=== PATIENT | male | born 1990 ===

== ENCOUNTER 2018-05-04 14:55 | Emergency (ER) | payer OTHER ==
[2018-05-04] MEDS ORDERED: NACL 0.9% 1000 ML 1,000 ML IV ONE ×2 (15:37→16:21)
[2018-05-04 16:05] LABS: Basophils # (Auto) 0.1 K/mm3 (0.0-0.1); Basophils % (Auto) 0.9 % (0.0-1.8); Eosinophils % (Auto) 0.4 % (0.0-4.3); Hemoglobin 13.5 gm/dl (11.8-15.2); Lymphocytes # (Auto) 3.7 K/mm3 (1.2-5.4); Lymphocytes % (Auto) 30.2 % (13.4-35.0); Mean Corpuscular HGB Conc 35 % (32-34); Mean Corpuscular Hemoglobin 31 pg (28-32); Mean Corpuscular Volume 90 fl (84-94); Monocytes # (Auto) 0.5 K/mm3 (0.0-0.8); Red Blood Count 4.36 M/mm3 (3.65-5.03); Red Cell Distribution Width 12.3 % (13.2-15.2)
[2018-05-04 16:20] LABS: Alanine Aminotransferase 7 units/L (7-56); Albumin 4.1 g/dL (3.9-5); BUN/Creatinine Ratio 11; Blood Urea Nitrogen 8 mg/dL (9-20); Calcium 9.7 mg/dL (8.4-10.2); Hemolysis Index 6; Lipase 18 units/L (13-60)
[2018-05-04] MEDS ORDERED: HALDOL IM ONE (16:21)
[2018-05-04 16:33] LABS: Platelet Count 343 K/mm3 (140-440)
--- NOTE | 2018-05-04 17:04 | Emergency Department Report ---
ED General Adult HPI - General Chief complaint: Abdominal Pain Stated complaint: N/V Time Seen by Provider: 05/04/18 15:44 Source: patient Mode of arrival: Ambulatory Limitations: No Limitations - History of Present Illness Initial comments: Patient presents to emergency department with chief complaint of nausea vomiting and abdominal pain. Patient states she has a history of gastroparesis and states his having a flareup currently. Patient also states that 3 weeks ago he had a renal stent placed for a 9 mm stone and was supposed to have it removed but he was arrested and has a follow-up with urology. Patient has no other complaints. He denies chest pain, shortness of breath, headache. -: Sudden Location: abdomen Radiation: non-radiation Severity scale (0 -10): 6 Quality: aching, sharp Consistency: constant Improves with: none Worsens with: none Associated Symptoms: denies other symptoms Treatments Prior to Arrival: none - Related Data Previous Rx's Medication Instructions Recorded Last Taken Type Ketorolac [Toradol] 10 mg PO Q8H PRN #12 tablet 05/04/18 Unknown Rx Metoclopramide [Reglan] 10 mg PO TID #21 tab 05/04/18 Unknown Rx Ondansetron [Zofran Odt] 4 mg PO Q8HR #12 tab.rapdis 05/04/18 Unknown Rx levoFLOXacin [Levaquin] 750 mg PO QDAY #5 tablet 05/04/18 Unknown Rx Allergies Allergy/AdvReac Type Severity Reaction Status Date / Time No Known Allergies Allergy Verified 05/04/18 15:51 ED Review of Systems ROS: Stated complaint: N/V Other details as noted in HPI Comment: All other systems reviewed and negative Constitutional: denies: chills, fever Eyes: denies: eye pain, eye discharge, vision change ENT: denies: ear pain, throat pain Respiratory: denies: cough, shortness of breath, wheezing Cardiovascular: denies: chest pain, palpitations Endocrine: no symptoms reported Gastrointestinal: abdominal pain, nausea, vomiting. denies: diarrhea Genitourinary: denies: urgency, dysuria Musculoskeletal: denies: back pain, joint swelling, arthralgia Skin: denies: rash, lesions Neurological: denies: headache, weakness, paresthesias Psychiatric: denies: anxiety, depression Hematological/Lymphatic: denies: easy bleeding, easy bruising ED Past Medical Hx - Past Medical History Hx Diabetes: Yes Hx Kidney Stones: Yes Additional medical history: gastroporsis - Surgical History Past Surgical History?: No - Social History Smoking Status: Current Every Day Smoker - Medications Home Medications: Home Medications Medication Instructions Recorded Confirmed Last Taken Type Ketorolac [Toradol] 10 mg PO Q8H PRN #12 tablet 05/04/18 Unknown Rx Metoclopramide [Reglan] 10 mg PO TID #21 tab 05/04/18 Unknown Rx Ondansetron [Zofran Odt] 4 mg PO Q8HR #12 tab.rapdis 05/04/18 Unknown Rx levoFLOXacin [Levaquin] 750 mg PO QDAY #5 tablet 05/04/18 Unknown Rx ED Physical Exam - General Limitations: No Limitations General appearance: alert, in no apparent distress - Head Head exam: Present: atraumatic, normocephalic - Eye Eye exam: Present: normal appearance, PERRL, EOMI - ENT ENT exam: Present: other (dry mucous membranes) - Neck Neck exam: Present: normal inspection - Respiratory Respiratory exam: Present: normal lung sounds bilaterally. Absent: respiratory distress, wheezes, rales, rhonchi - Cardiovascular Cardiovascular Exam: Present: normal rhythm, other (tachycardic). Absent: systolic murmur, diastolic murmur, rubs, gallop - GI/Abdominal GI/Abdominal exam: Present: soft, tenderness (mildly diffusely tender throughout ), normal bowel sounds. Absent: distended - Rectal Rectal exam: Present: deferred - Extremities Exam Extremities exam: Present: normal inspection - Back Exam Back exam: Present: normal inspection - Neurological Exam Neurological exam: Present: alert, oriented X3, CN II-XII intact. Absent: motor sensory deficit - Psychiatric Psychiatric exam: Present: normal affect, normal mood - Skin Skin exam: Present: warm, dry, intact, normal color. Absent: rash ED Course Vital Signs 05/04/18 05/04/18 15:32 15:37 Temperature 98.8 F Pulse Rate 104 H Respiratory 18 18 Rate Blood Pressure 147/98 O2 Sat by Pulse 96 Oximetry ED Medical Decision Making - Lab Data Result diagrams: 05/04/18 15:47 05/04/18 15:47 Lab Results 05/04/18 05/04/18 05/04/18 Range/Units 15:47 15:47 18:13 WBC 12.2 H (4.5-11.0) K/mm3 RBC 4.36 (3.65-5.03) M/mm3 Hgb 13.5 (11.8-15.2) gm/dl Hct 39.0 (35.5-45.6) % MCV 90 (84-94) fl MCH 31 (28-32) pg MCHC 35 H (32-34) % RDW 12.3 L (13.2-15.2) % Plt Count 343 (140-440) K/mm3 Lymph % (Auto) 30.2 (13.4-35.0) % [place] % (Auto) 4.0 (0.0-7.3) % Eos % (Auto) 0.4 (0.0-4.3) % Baso % (Auto) 0.9 (0.0-1.8) % Lymph # 3.7 (1.2-5.4) K/mm3 [place] # 0.5 (0.0-0.8) K/mm3 Eos # 0.0 (0.0-0.4) K/mm3 Baso # 0.1 (0.0-0.1) K/mm3 Seg Neutrophils % 64.5 (40.0-70.0) % Seg Neutrophils # 7.9 H (1.8-7.7) K/mm3 Sodium 142 (137-145) mmol/L Potassium 3.6 (3.6-5.0) mmol/L Chloride 99.6 (98-107) mmol/L Carbon Dioxide 23 (22-30) mmol/L Anion Gap 23 mmol/L BUN 8 L (9-20) mg/dL Creatinine 0.7 L (0.8-1.5) mg/dL Estimated GFR > 60 ml/min BUN/Creatinine Ratio 11 % Glucose 147 H (75-100) mg/dL Calcium 9.7 (8.4-10.2) mg/dL Total Bilirubin 0.80 (0.1-1.2) mg/dL AST 12 (5-40) units/L ALT 7 (7-56) units/L Alkaline Phosphatase 68 (35-129) units/L Total Protein 8.6 H (6.3-8.2) g/dL Albumin 4.1 (3.9-5) g/dL Albumin/Globulin Ratio 0.9 % Amylase 42 (27-131) units/L Lipase 18 (13-60) units/L Urine Color Yellow (Yellow) Urine Turbidity Cloudy (Clear) Urine pH 6.0 (5.0-7.0) Ur Specific [place] 1.018 (1.003-1.030) Urine Protein 100 mg/dl (Negative) mg/dL Urine Glucose (UA) Neg (Negative) mg/dL Urine Ketones 80 (Negative) mg/dL Urine Blood Lg (Negative) Urine Nitrite Neg (Negative) Urine Bilirubin Neg (Negative) Urine Urobilinogen 2.0 (<2.0) mg/dL Ur Leukocyte Esterase Lg (Negative) Urine WBC (Auto) > 182.0 H (0.0-6.0) /HPF Urine RBC (Auto) 53.0 (0.0-6.0) /HPF U Epithel Cells (Auto) 3.0 (0-13.0) /HPF Urine Bacteria (Auto) 1+ (Negative) /HPF Urine Mucus 3+ /HPF - Radiology Data Referring Physician: CARIDAD VARGAS Patient Name: SANDRA BETH Date of : 1990 Sex: Male Report Date: 2018-05-04 Report Status: [place] [address] Cat Scan Report Signed Patient: SANDRA BETH MR#: [id number] : 1989 Acct:[id number] Age/Sex: 27 / M ADM Date: 05/04/18 Loc: ED Attending Dr: Ordering Physician: ACRIDAD VARGAS MD Date of Service: 05/04/18 Procedure(s): CT abdomen pelvis wo con Accession Number(s): [id number] cc: CARIDAD VARGAS MD FINAL REPORT EXAM: CT ABDOMEN PELVIS WO CON HISTORY: abdominal pain TECHNIQUE: Spiral CT scanning of the abdomen and pelvis. No oral or IV contrast administered. Multiplanar reformations. PRIORS: None. FINDINGS: Abdomen: Examination limited due to lack of contrast administration. Visualized lung bases grossly unremarkable. No radiopaque gallstones. Liver grossly unremarkable. Spleen grossly unremarkable. Pancreas grossly unremarkable. Left double-J ureteral stent extending from left renal pelvis to urinary bladder, and mild dilatation of left renal collecting system without apparent renal calcifications. Punctate, possible papillary calcification noted in the right kidney without significant hydronephrosis. Adrenal glands grossly unremarkable. Pelvis: Bowel grossly unremarkable, with moderate amount of retained stool. Appendix within normal limits. No significant free peritoneal fluid or loculated fluid collection. Abdominal aorta non-aneurysmal. Apparent partial calcification of bilateral vas deferens. Axial skeleton grossly unremarkable. IMPRESSION: 1. Mild left hydronephrosis and indwelling left ureteral stent. 2. Punctate, nonobstructing right renal calcification. No significant right hydronephrosis. Transcribed By: [facility] Dictated By: CADE AVILA MD Electronically Authenticated By: CADE AVILA MD Signed Date/Time: 1806 DD/ 06 TD/TT: 05/04/181806 - Medical Decision Making Discussed results with the patient Critical care attestation.: If time is entered above; I have spent that time in minutes in the direct care of this critically ill patient, excluding procedure time. ED Disposition Clinical Impression: Gastroparesis, UTI (urinary tract infection) Disposition: - TO HOME OR SELFCARE Is pt being admited?: No Does the pt Need Aspirin: No Condition: Stable Instructions: Acute Nausea and Vomiting (ED), Urinary Tract Infection in Men ( ED) Additional Instructions: return if worse Prescriptions: Ketorolac [Toradol] 10 mg PO Q8H PRN #12 tablet PRN Reason: Pain levoFLOXacin [Levaquin] 750 mg PO QDAY #5 tablet Metoclopramide [Reglan] 10 mg PO TID #21 tab Ondansetron [Zofran Odt] 4 mg PO Q8HR #12 tab.shannondis Referrals: PRIMARY CAREMD [Primary Care Provider] - 3-5 Days ISMAEL GAFFNEY MD [Staff Physician] - 3-5 Days KECIA AYALA MD [Staff Physician] - 3-5 Days Time of Disposition: 19:00
--- NOTE | 2018-05-04 18:08 | Cat Scan Report ---
FINAL REPORT EXAM: CT ABDOMEN PELVIS WO CON HISTORY: abdominal pain TECHNIQUE: Spiral CT scanning of the abdomen and pelvis. No oral or IV contrast administered. Multiplanar reformations. PRIORS: None. FINDINGS: Abdomen: Examination limited due to lack of contrast administration. Visualized lung bases grossly unremarkable. No radiopaque gallstones. Liver grossly unremarkable. Spleen grossly unremarkable. Pancreas grossly unremarkable. Left double-J ureteral stent extending from left renal pelvis to urinary bladder, and mild dilatation of left renal collecting system without apparent renal calcifications. Punctate, possible papillary calcification noted in the right kidney without significant hydronephrosis. Adrenal glands grossly unremarkable. Pelvis: Bowel grossly unremarkable, with moderate amount of retained stool. Appendix within normal limits. No significant free peritoneal fluid or loculated fluid collection. Abdominal aorta non-aneurysmal. Apparent partial calcification of bilateral vas deferens. Axial skeleton grossly unremarkable. IMPRESSION: 1. Mild left hydronephrosis and indwelling left ureteral stent. 2. Punctate, nonobstructing right renal calcification. No significant right hydronephrosis.
[2018-05-04 18:34] LABS: Bacteria,Urine 1+ /HPF (Negative); Bilirubin,Urine NEG (Negative); Blood,Urine LG (Negative); Color,Urine Yellow (Yellow); Mucus,Urine 3+ /HPF
[2018-05-04] MEDS ORDERED: REGLAN IV ONE (18:34)
[2018-05-04 18:35] LABS: WBC,Urine > 182.0 /HPF (0.0-6.0)
[2018-05-04] MEDS ORDERED: TORADOL IV ONE (18:35)
[2018-05-04] MEDS ORDERED: LEVAQUIN PO ONE (18:54)
[2018-05-04 20:01] VITALS: BP 140/62
== END 2018-05-04 19:59 | disposition home or self-care (01) ==
LOC: ED 14:55
DX: K31.84 Gastroparesis (principal); N39.0 Urinary tract infection, site not specified; E11.9 Type 2 diabetes mellitus without complications; F17.200 Nicotine dependence, unspecified, uncomplicated; Z87.442 Personal history of urinary calculi
CPT/HCPCS: 36415; 74176; 80053; 81001; 82150; 83690; 85025; 96361; 96372; 96374; 96375; 99284; J1630; J1885; J2765; J7030